=== PATIENT | female | born 1945 | race Caucasian/White ===

== ENCOUNTER 2020-07-14 11:43 | Emergency (ER) | payer OTHER, MEDICARE ==
[~2020-07-14 11:43] MED LIST: 3IN1 COMMODE XX; ADALAT CC30 MG PO; AMBIEN10 MG PO; AMOX TR-K200 MG/5 M PO; ATARAX25 MG PO; BENTYL10 MG PO; CLARITIN10 MG PO; COLACE100 MG PO; COZAAR100 MG PO; COZAAR50 MG PO; FEOSOL325 MG PO; FIORICET1 EACH PO; FLOMAX0.4 MG PO; HYDROCODON-ACE1 EAC2 PO; HYDROCODON-ACE1 EAC6 PO; IMITREX50 MG PO; LIPITOR 10MG TA10 MG PO; LIPITOR20 M1 PO; MELATONIN5 M2 PO; METHOCARBAMOL750 MG PO; MICON-GUARD 2% TOP; MIRALAX17 GM PO; NEURONTIN400 MG PO; NORCO 7.5-3251 EACH PO; NORVASC5 MG PO; ONDANSETRON HCL4 MG PO; OXY-IR 5MG5 MG PO; OXYCONTIN 10MG10 MG PO; PANTOPRAZOLE SO40 MG PO; PLAVIX75 MG PO; PROTONIX 40MG T40 MG PO; SENOKOT8.6 MG PO; TAMSULOSIN HCL0.4 MG PO; TIZANIDINE HCL2 M1 PO; TIZANIDINE HCL4 MG PO; TOPIRAMATE100 MG PO; TOPROL XL 25MG25 MG PO; TRILEPTAL300 MG PO; ULTRA-LIGHT RO1 EACH XX; VIBRAMYCIN100 MG PO; VICODIN 10/3251 EACH PO; VIMPAT100 MG PO; VITAMIN D-32000 UNI1 PO; VITAMIN D1000 UNI1 PO; XARELTO10 MG PO; ZOFRAN4 MG PO; ZOLOFT100 MG PO; ZOLPIDEM 10MG T10 MG PO; ZYRTEC10 M3 PO; ZYRTEC10 MG PO; [UNRECOGNIZED DRUG - SUPPLY]
[2020-07-14 12:44] LABS: BASOPHIL 0.8 % (0-2); EOSINOPHIL 3.2 % (0-7); HCT 36.9 % (37.0-47.0); HGB 11.1 g/dl (12.5-16.0); LYMPHOCYTE 26.5 % (15-48); MCH 26.2 pg (25.0-31.0); MCHC 30.1 g/dL (32.0-36.0); MCV 87.2 fL (78.0-100.0); MONOCYTE 8.5 % (0-12); MPV 10.2 fL (6.0-9.5); NEUTROPHIL 60.8 % (41-80); NRBC 0; PLT 297 K/uL (150-400); RBC 4.23 M/uL (4.20-5.40); RDW 16.7 % (11.5-14.0); WBC 6.6 K/uL (4.0-10.5)
[2020-07-14 12:48] LABS: INR 0.91 (0.9-1.2); PROTHROMBIN TIME 11.6 SECONDS (11.4-13.6)
[2020-07-14 12:50] LABS: BILIRUBIN - TOTAL 0.2 mg/dL (0.2-1.0); CREATININE 0.7 mg/dL (0.51-0.95); GLOBULIN (CALCULATION) 3.8 g/dL; POTASSIUM 3.6 mmol/L (3.5-5.1); TOTAL PROTEIN 7.8 g/dL (6.4-8.2)
[2020-07-14 13:50] LABS: ECSTASY (MDMA) NEGATIVE (NEGATIVE); MARIJUANA (THC) NEGATIVE (NEGATIVE); METHADONE NEGATIVE (NEGATIVE); OPIATES POSITIVE (NEGATIVE)
[2020-07-14 13:51] LABS: AMPHETAMINES NEGATIVE (NEGATIVE); BARBITURATES NEGATIVE (NEGATIVE); OXYCODONE POSITIVE (NEGATIVE)
== END 2020-07-14 20:18 | disposition other institution (70) ==
LOC: FER 11:43
PROVIDERS: Emergency Medicine
DX: R41.3 Other amnesia (principal); E11.9 Type 2 diabetes mellitus without complications; I11.9 Hypertensive heart disease without heart failure; I43 Cardiomyopathy in diseases classified elsewhere; G89.29 Other chronic pain; M54.9 Dorsalgia, unspecified; V49.60XA Unspecified car occupant injured in collision with unspecified motor vehicles in traffic accident, initial encounter; Y92.410 Unspecified street and highway as the place of occurrence of the external cause
CPT/HCPCS: 36415; 70450; 70551; 72125; 80053; 80305; 84484; 85025; 85610; 93005; G0480

== ENCOUNTER 2020-11-02 04:15 | Emergency (ER) | payer MEDICARE, OTHER ==
[2020-11-02 04:42] LABS: BASOPHIL 0.6 % (0-2); EOSINOPHIL 1.7 % (0-7); HCT 36.6 % (37.0-47.0); HGB 10.4 g/dl (12.5-16.0); MCH 25.5 pg (25.0-31.0); MCHC 28.4 g/dL (32.0-36.0); MCV 89.7 fL (78.0-100.0); MONOCYTE 11.2 % (0-12); MPV 9.9 fL (6.0-9.5); NEUTROPHIL 45.2 % (41-80); NRBC 0; PLT 364 K/uL (150-400); RBC 4.08 M/uL (4.20-5.40); RDW 16.4 % (11.5-14.0); WBC 9.7 K/uL (4.0-10.5)
[2020-11-02 04:52] LABS: ALBUMIN 3.4 g/dL (3.4-5.0); BILIRUBIN - TOTAL 0.1 mg/dL (0.2-1.0); BUN/CREAT RATIO (CALC) 35.8 RATIO; CREATININE 0.53 mg/dL (0.51-0.95); POTASSIUM 4.1 mmol/L (3.5-5.1); TOTAL PROTEIN 7.4 g/dL (6.4-8.2)
[2020-11-02 04:56] LABS: BILIRUBIN NEGATIVE (NEGATIVE); BLOOD NEGATIVE Ery/uL (NEGATIVE); CLARITY CLEAR (CLEAR); COLOR YELLOW (YELLOW); GLUCOSE (U) NORMAL (NORMAL); LEUKOCYTES NEGATIVE Leu/uL (NEGATIVE); NITRITE NEGATIVE (NEGATIVE); PROTEIN NEGATIVE (NEGATIVE); SPECIFIC GRAVITY 1.025 (1.001-1.030); UROBILINOGEN 0.2 mg/dL (0.2-1.0)
[2020-11-02 04:59] LABS: AMPHETAMINES NEGATIVE (NEGATIVE); BARBITURATES NEGATIVE (NEGATIVE); ECSTASY (MDMA) NEGATIVE (NEGATIVE); MARIJUANA (THC) NEGATIVE (NEGATIVE); METHADONE NEGATIVE (NEGATIVE); OPIATES NEGATIVE (NEGATIVE); OXYCODONE NEGATIVE (NEGATIVE)
[2020-11-02] MEDS ORDERED: DICYCLOMINE HCL20 MG PO (06:26)
[2020-11-02] MEDS ORDERED: GABAPENTIN800 MG PO (06:26)
== END 2020-11-02 09:40 | disposition other institution (70) ==
LOC: FER 04:15
PROVIDERS: Emergency Medicine
DX: G40.409 Other generalized epilepsy and epileptic syndromes, not intractable, without status epilepticus (principal); Z86.73 Personal history of transient ischemic attack (TIA), and cerebral infarction without residual deficits; Z88.8 Allergy status to other drugs, medicaments and biological substances
CPT/HCPCS: 36415; 70450; 80053; 80305; 81003; 85025; 93005; J1953; J2060; J2405

== ENCOUNTER 2021-05-29 09:40 | Emergency (ER) | payer MEDICARE, OTHER ==
[~2021-05-29 09:40] MED LIST changes: +DICYCLOMINE HCL20 MG PO; +GABAPENTIN800 MG PO
[2021-05-29] MEDS ORDERED: HYDROCODON-ACE1 EAC6 PO (13:01)
== END 2021-05-29 13:35 | disposition home or self-care (01) ==
LOC: FER 09:40
DX: S22.32XA Fracture of one rib, left side, initial encounter for closed fracture (principal); J90 Pleural effusion, not elsewhere classified; I10 Essential (primary) hypertension; Z79.899 Other long term (current) drug therapy; Z88.6 Allergy status to analgesic agent; Y92.009 Unspecified place in unspecified non-institutional (private) residence as the place of occurrence of the external cause; W01.0XXA Fall on same level from slipping, tripping and stumbling without subsequent striking against object, initial encounter; N13.30 Unspecified hydronephrosis
CPT/HCPCS: 71250; 72128; 72131; J1170

== ENCOUNTER 2021-08-09 00:31 | Inpatient (IN) | payer MEDICARE, OTHER ==
[~2021-08-09] VITALS: Ht 162.6 cm; Wt 53.3 kg
[2021-08-09 03:25] LABS: BASOPHIL 0.2 % (0-2); EOSINOPHIL 0 % (0-7); HCT 30.2 % (37.0-47.0); HGB 9.2 g/dl (12.5-16.0); LYMPHOCYTE 4.1 % (15-48); MCH 24.5 pg (25.0-31.0); MCHC 30.5 g/dL (32.0-36.0); MCV 80.3 fL (78.0-100.0); MONOCYTE 4.8 % (0-12); MPV 9.5 fL (6.0-9.5); NEUTROPHIL 90.4 % (41-80); NRBC 0; PLT 220 K/uL (150-400); RBC 3.76 M/uL (4.20-5.40); RDW 17.9 % (11.5-14.0); WBC 17.4 K/uL (4.0-10.5)
[2021-08-09 03:36] LABS: BILIRUBIN NEGATIVE (NEGATIVE); BLOOD NEGATIVE Ery/uL (NEGATIVE); CLARITY CLEAR (CLEAR); COLOR YELLOW (YELLOW); GLUCOSE (U) NORMAL (NORMAL); LEUKOCYTES NEGATIVE Leu/uL (NEGATIVE); NITRITE NEGATIVE (NEGATIVE); PROTEIN NEGATIVE (NEGATIVE); SPECIFIC GRAVITY 1.025 (1.001-1.030); UROBILINOGEN 0.2 mg/dL (0.2-1.0); pH 5.5 (5.0-9.0)
[2021-08-09 03:39] LABS: BUN/CREAT RATIO (CALC) 52.9 RATIO; CREATININE 0.7 mg/dL (0.51-0.95); POTASSIUM 4.1 mmol/L (3.5-5.1)
[2021-08-09 05:15] LABS: LACTIC ACID 1.2 mmol/L (0.4-1.9)
[2021-08-09 08:12] LABS: ALBUMIN 3.2 g/dL (3.4-5.0); BILIRUBIN - DIRECT 0.1 mg/dL (0.00-0.20); BILIRUBIN - TOTAL 0.2 mg/dL (0.2-1.0); GLOBULIN (CALCULATION) 3.8 g/dL
[2021-08-10 07:47] LABS: IRON % SATURATION 4.3 %SAT (20-50)
[2021-08-10 07:58] LABS: BASOPHIL 0.5 % (0-2); EOSINOPHIL 1.1 % (0-7); HCT 30.9 % (37.0-47.0); HGB 9.2 g/dl (12.5-16.0); LYMPHOCYTE 9.8 % (15-48); MCHC 29.8 g/dL (32.0-36.0); MCV 80.7 fL (78.0-100.0); MONOCYTE 7.2 % (0-12); MPV 10.2 fL (6.0-9.5); NEUTROPHIL 80.9 % (41-80); NRBC 0; PLT 204 K/uL (150-400); RBC 3.83 M/uL (4.20-5.40); RDW 18.2 % (11.5-14.0); WBC 12.1 K/uL (4.0-10.5)
[2021-08-10 08:02] LABS: CHLORIDE 101 mmol/L (98-107); CO2 (BICARBONATE) 23 mmol/L (21-32); CREATININE 0.42 mg/dL (0.51-0.95); GLUCOSE 90 mg/dL (74-106)
[2021-08-10 08:03] LABS: BUN 13 mg/dL (7-18); C-REACTIVE PROTEIN > 18.00 mg/dL (<=0.90)
[2021-08-11 06:40] LABS: BASOPHIL 0.6 % (0-2); HGB 9.2 g/dl (12.5-16.0); LYMPHOCYTE 20.6 % (15-48); MCHC 29.7 g/dL (32.0-36.0); MCV 80.7 fL (78.0-100.0); MONOCYTE 8.1 % (0-12); MPV 9.8 fL (6.0-9.5); NEUTROPHIL 67.8 % (41-80); NRBC 0; PLT 204 K/uL (150-400); RBC 3.84 M/uL (4.20-5.40); RDW 18.2 % (11.5-14.0)
[2021-08-11 07:02] LABS: ALBUMIN 2.7 g/dL (3.4-5.0); BILIRUBIN - DIRECT 0.1 mg/dL (0.00-0.20); BILIRUBIN - TOTAL 0.3 mg/dL (0.2-1.0); CREATININE 0.37 mg/dL (0.51-0.95); POTASSIUM 3.5 mmol/L (3.5-5.1); TOTAL PROTEIN 6.7 g/dL (6.4-8.2)
[2021-08-12 06:33] LABS: BASOPHIL 0.6 % (0-2); EOSINOPHIL 2.2 % (0-7); HCT 37.9 % (37.0-47.0); HGB 11.1 g/dl (12.5-16.0); LYMPHOCYTE 24.2 % (15-48); MCH 23.9 pg (25.0-31.0); MCHC 29.3 g/dL (32.0-36.0); MCV 81.5 fL (78.0-100.0); NRBC 0; PLT 227 K/uL (150-400); RBC 4.65 M/uL (4.20-5.40); RDW 18.5 % (11.5-14.0); WBC 6.9 K/uL (4.0-10.5)
[2021-08-12 07:02] LABS: CREATININE 0.4 mg/dL (0.51-0.95); POTASSIUM 4.1 mmol/L (3.5-5.1)
[2021-08-12] MEDS ORDERED: FLORANEX TABLE1 EACH PO (07:16)
[2021-08-12] MEDS ORDERED: MAG-OXIDE 400M400 MG PO (07:16)
[2021-08-12] MEDS ORDERED: AUGMENTIN 500-1 EACH PO (07:16)
[2021-08-12] MEDS ORDERED: NORCO 5-325 TA1 EACH PO (07:46)
[2021-08-15 16:12] LABS: ORGANISM ID Not indicated. (.); SPECIMEN SOURCE Urine (.); STREPTOCOCCUS PNEUMONIAE AG Negative (Negative)
== END 2021-08-12 13:15 | disposition home or self-care (01) | DRG 871 ==
LOC: FER 00:31 → FMS 12:34
PROVIDERS: Emergency Medicine; Internal Medicine; ADMIT Family Medicine
DX: A41.9 Sepsis, unspecified organism (principal); J18.9 Pneumonia, unspecified organism; N17.9 Acute kidney failure, unspecified; N13.30 Unspecified hydronephrosis; I47.1 Supraventricular tachycardia; I50.32 Chronic diastolic (congestive) heart failure; R65.20 Severe sepsis without septic shock; Z20.822 Contact with and (suspected) exposure to COVID-19; M79.89 Other specified soft tissue disorders; M25.551 Pain in right hip; M25.561 Pain in right knee; M25.532 Pain in left wrist; M25.531 Pain in right wrist; M54.2 Cervicalgia; W19.XXXA Unspecified fall, initial encounter; R27.0 Ataxia, unspecified; K59.01 Slow transit constipation; I08.1 Rheumatic disorders of both mitral and tricuspid valves; R55 Syncope and collapse; R29.6 Repeated falls; I11.0 Hypertensive heart disease with heart failure; G89.4 Chronic pain syndrome; D50.9 Iron deficiency anemia, unspecified; K82.8 Other specified diseases of gallbladder; E11.9 Type 2 diabetes mellitus without complications; K21.9 Gastro-esophageal reflux disease without esophagitis; Z96.651 Presence of right artificial knee joint; Z96.612 Presence of left artificial shoulder joint; Z88.8 Allergy status to other drugs, medicaments and biological substances; Z86.73 Personal history of transient ischemic attack (TIA), and cerebral infarction without residual deficits; Z98.890 Other specified postprocedural states; Z90.710 Acquired absence of both cervix and uterus; Z79.899 Other long term (current) drug therapy
CPT/HCPCS: 36415; 70450; 71045; 71275; 72125; 73130; 73502; 73560; 76705; 80048; 80076; 81003; 82607; 83036; 83540; 83550; 83605; 84145; 84443; 85025; 85379; 86140; 87040; 87449; 93005; 93971; 94010; 96365; 96372; 96375; 97162; 97166; 97530; 97530-GP; 97535; J1170; J2060; J2543; J2916; J7030; J7040; Q9967; U0002

== ENCOUNTER 2021-08-26 01:13 | Emergency (ER) | payer MEDICARE, OTHER ==
[~2021-08-26 01:13] MED LIST changes: +AUGMENTIN 500-1 EACH PO; +FLEXERIL5 MG PO; +FLORANEX TABLE1 EACH PO; +MAG-OXIDE 400M400 MG PO; +NORCO 5-325 TA1 EACH PO
[2021-08-26 01:52] LABS: PROTHROMBIN TIME 12.6 SECONDS (11.8-13.4); PTT 28.5 SECONDS (24.4-34.7)
[2021-08-26 02:02] LABS: ACETAMINOPHEN (TYLENOL) 31.1 ug/mL (10.0-30.0); ALBUMIN 3.7 g/dL (3.4-5.0); BILIRUBIN - TOTAL 0.4 mg/dL (0.2-1.0); BUN/CREAT RATIO (CALC) 21.2 RATIO; CREATININE 0.66 mg/dL (0.51-0.95); GLOBULIN (CALCULATION) 3.7 g/dL; POTASSIUM 2.9 mmol/L (3.5-5.1); TOTAL PROTEIN 7.4 g/dL (6.4-8.2)
[2021-08-26 02:15] LABS: BASOPHIL 0.9 % (0-2); EOSINOPHIL 0.6 % (0-7); HCT 35.5 % (37.0-47.0); HGB 10.5 g/dl (12.5-16.0); LYMPHOCYTE 19.2 % (15-48); MCHC 29.6 g/dL (32.0-36.0); MCV 84.5 fL (78.0-100.0); MONOCYTE 6.2 % (0-12); MPV 9.4 fL (6.0-9.5); NEUTROPHIL 72.8 % (41-80); RBC 4.2 M/uL (4.20-5.40); RDW 22.5 % (11.5-14.0); WBC 10.1 K/uL (4.0-10.5)
== END 2021-08-26 05:49 | disposition home or self-care (01) ==
LOC: FER 01:13
PROVIDERS: Emergency Medicine
DX: S80.01XA Contusion of right knee, initial encounter (principal); W19.XXXA Unspecified fall, initial encounter; Y92.009 Unspecified place in unspecified non-institutional (private) residence as the place of occurrence of the external cause
CPT/HCPCS: 36415; 73560; 80053; 85025; 85610; 85730; G0480; J1170; J2550

== ENCOUNTER 2021-08-28 06:10 | Emergency (ER) | payer MEDICARE, OTHER ==
[2021-08-28 06:49] LABS: BASOPHIL 1.7 % (0-2); EOSINOPHIL 1.7 % (0-7); HGB 10.8 g/dl (12.5-16.0); LYMPHOCYTE 28.8 % (15-48); MCH 25.8 pg (25.0-31.0); MCV 85.9 fL (78.0-100.0); MPV 10.2 fL (6.0-9.5); NEUTROPHIL 60.5 % (41-80); NRBC 0; PLT 528 K/uL (150-400); RBC 4.19 M/uL (4.20-5.40); RDW 23.3 % (11.5-14.0)
[2021-08-28 07:12] LABS: ALBUMIN 3.4 g/dL (3.4-5.0); BILIRUBIN - TOTAL 0.4 mg/dL (0.2-1.0); BUN/CREAT RATIO (CALC) 24.4 RATIO; CREATININE 0.78 mg/dL (0.51-0.95); GLOBULIN (CALCULATION) 3.9 g/dL; POTASSIUM 4.2 mmol/L (3.5-5.1); TOTAL PROTEIN 7.3 g/dL (6.4-8.2)
[2021-08-28 07:24] LABS: CORONAVIRUS 2019 SARS-COV-2 NEGATIVE (NEGATIVE); INFLUENZA A NAA NEGATIVE (NEGATIVE)
[2021-08-28 07:35] LABS: BILIRUBIN NEGATIVE (NEGATIVE); BLOOD NEGATIVE Ery/uL (NEGATIVE); CLARITY CLEAR (CLEAR); COLOR YELLOW (YELLOW); GLUCOSE (U) NORMAL (NORMAL); LEUKOCYTES NEGATIVE Leu/uL (NEGATIVE); NITRITE NEGATIVE (NEGATIVE); PROTEIN NEGATIVE (NEGATIVE); SPECIFIC GRAVITY 1.025 (1.001-1.030); UROBILINOGEN 0.2 mg/dL (0.2-1.0)
[2021-08-28] MEDS ORDERED: HYDROCODON-ACE1 EAC6 PO (08:20)
== END 2021-08-28 08:34 | disposition home or self-care (01) ==
LOC: FER 06:10
PROVIDERS: Internal Medicine
DX: R10.11 Right upper quadrant pain (principal); R10.31 Right lower quadrant pain; R10.32 Left lower quadrant pain; R11.2 Nausea with vomiting, unspecified; I10 Essential (primary) hypertension; Z88.6 Allergy status to analgesic agent; Z79.899 Other long term (current) drug therapy; Z20.822 Contact with and (suspected) exposure to COVID-19
CPT/HCPCS: 36415; 80053; 81003; 83690; 83880; 84145; 84484; 85025; 93005; J2270; J2550; J7030; U0002

== ENCOUNTER 2021-08-30 11:25 | Emergency (ER) | payer MEDICARE, OTHER ==
[2021-08-30 12:18] LABS: BILIRUBIN NEGATIVE (NEGATIVE); BLOOD NEGATIVE Ery/uL (NEGATIVE); CLARITY CLEAR (CLEAR); COLOR YELLOW (YELLOW); GLUCOSE (U) NORMAL (NORMAL); LEUKOCYTES NEGATIVE Leu/uL (NEGATIVE); NITRITE NEGATIVE (NEGATIVE); PROTEIN NEGATIVE (NEGATIVE); SPECIFIC GRAVITY 1.025 (1.001-1.030); UROBILINOGEN 0.2 mg/dL (0.2-1.0)
[2021-08-30 12:19] LABS: MARIJUANA (THC) NEGATIVE (NEGATIVE)
[2021-08-30 12:20] LABS: AMPHETAMINES NEGATIVE (NEGATIVE); ECSTASY (MDMA) NEGATIVE (NEGATIVE); OXYCODONE NEGATIVE (NEGATIVE)
[2021-08-30 12:21] LABS: OPIATES POSITIVE (NEGATIVE)
[2021-08-30 12:25] LABS: BARBITURATES POSITIVE (NEGATIVE); METHADONE POSITIVE (NEGATIVE)
== END 2021-08-30 13:38 | disposition home or self-care (01) ==
LOC: FER 11:25
PROVIDERS: Emergency Medicine
DX: G89.29 Other chronic pain (principal); M25.561 Pain in right knee; I10 Essential (primary) hypertension; Z91.81 History of falling
CPT/HCPCS: 80305; 81003; 99283

== ENCOUNTER 2022-01-18 15:14 | Emergency (ER) | payer MEDICARE, OTHER ==
[2022-01-18] MEDS ORDERED: PERCOCET 5-3251 EACH PO (21:10)
== END 2022-01-18 21:20 | disposition home or self-care (01) ==
LOC: FER 15:14
DX: S33.5XXA Sprain of ligaments of lumbar spine, initial encounter (principal); M25.551 Pain in right hip; R07.81 Pleurodynia; I10 Essential (primary) hypertension; W06.XXXA Fall from bed, initial encounter; Y92.009 Unspecified place in unspecified non-institutional (private) residence as the place of occurrence of the external cause
CPT/HCPCS: 71100; 72128; 72131; 73502; J1170